=== PATIENT | male | born 1955 | race Caucasian/White ===

== ENCOUNTER 2020-11-10 17:06 | Inpatient (IN) | payer OTHER, SELFPAY ==
[~2020-11-10] VITALS: Ht 177.8 cm; Wt 50.3 kg
[2020-11-10 17:06] VITALS: BP 100/68
--- NOTE | 2020-11-10 17:20 | NUR ---
WAS CALLED TO BEDSIDE TO SXN TRACH - PT HAS T-PIECE FROM FACILITY. SXN SMALL THICK WHITE. T-PIECE PLACED ON 5L NC WITH HUMIDIFIER
[2020-11-10] MEDS ORDERED: ACETAMINOPHEN 160 MG/5 ML UDC GT ONE (17:35)
[2020-11-10] MEDS ORDERED: ACETAMINOPHEN EXTRA STRENGTH 500 MG TAB GT ONE (17:35)
[2020-11-10] MEDS ORDERED: METO25TA GT (17:47)
[2020-11-10] MEDS ORDERED: ALBU3SOL83 IH (17:47)
[2020-11-10] MEDS ORDERED: LOV30I SQ (17:47)
[2020-11-10] MEDS ORDERED: QUET25TA GT (17:47)
[2020-11-10] MEDS ORDERED: ACET650O GT (17:47)
[2020-11-10] MEDS ORDERED: LACT1CAP59 GT (17:47)
[2020-11-10] MEDS ORDERED: FER300L GT (17:47)
[2020-11-10] MEDS ORDERED: MELA3TER GT (17:47)
[2020-11-10] MEDS ORDERED: LORA-476 GT (17:47)
[2020-11-10] MEDS ORDERED: ASCO500T95 GT (17:47)
[2020-11-10] MEDS ORDERED: ROB GT (17:47)
[2020-11-10] MEDS ORDERED: DRON400T5 GT (17:47)
[2020-11-10] MEDS ORDERED: DOCU-299 GT (17:47)
[2020-11-10 18:40] LABS: HEMATOCRIT 33.6 % (36-52); HEMOGLOBIN 11.1 g/dL (12.0-18.0); MEAN CORPUSCULAR HEMOGLOBIN 30 pg (27-31); MEAN CORPUSCULAR HGB CONC 33 g/dL (33-37); PLATELET COUNT (AUTO) 349 K/uL (140-450); RED BLOOD CELL COUNT(AUTO) 3.69 MIL/uL (4.20-6.10); RED CELL DISTRIBUTION WIDTH 13.9 % (11.6-13.7); WHITE BLOOD COUNT (AUTO) 18.2 K/uL (4.8-10.8)
[2020-11-10] MEDS ORDERED: VANCOMYCIN 1,000 MG in DEXTROSE 5% 250 ML IV ONE (18:40)
[2020-11-10] MEDS ORDERED: PIPERACILLIN/TAZOBACTAM 3.375 GM in DEXTROSE 5% 50 ML IV ONE (18:40)
[2020-11-10] MEDS ORDERED: NACL 0.9% 1,000 ML IV ONE ×2 (18:40→19:50)
--- NOTE | 2020-11-10 18:47 | NUR ---
PATIENT IS COMBATATIVE, LABS DRAWN BY TECH AFTER 4 ATTEMPTS BY MYSELF. CATHED FOR UA, PATIENT PULLS OFF ALL CORDS DESPITE THE USE OF SOFT RESTRAINTS. PATIENT IS FEBRILE, CONFUSED, TRACH HUMIDIFIED AIR. BREATH SOUNDS ARE BILATERALLY COARSE. EXAM AND EVAL WITH DR MORENO. STAGE 3 DECUB TO SACRAL, UNABLE TO PHOTOGRAPH AT THIS TIME.
[2020-11-10 18:59] LABS: ALBUMIN 2.9 g/dL (3.4-5.0); ANION GAP 12.3 (8-16); CARBON DIOXIDE 28.7 mmol/L (21-32); CREATININE 1.1 mg/dL (0.6-1.3); TOTAL BILIRUBIN 0.3 mg/dL (0.0-1.0)
--- NOTE | 2020-11-10 19:15 | NUR ---
RECEIVED PT AWAKE AND RESTLESS WITH BLOW BY O2 VIA TRACH. BECOMES COMBATIVE, PUNCHING, THROWS LEGS OVER RAILS. ATTEMPTD TO ASSIST WITH REPOSITIONING.
[2020-11-10 19:17] LABS: LYMPHOCYTES % (MANUAL) 6 % (20-46); MONOCYTES % (MANUAL) 1 % (5-12)
[2020-11-10] MEDS ORDERED: LORazepam 2 MG/ML VIAL IM ONE (19:25)
[2020-11-10] MEDS ORDERED: VANCOMYCIN 1,000 MG VIAL ONE (20:44)
[2020-11-10] MEDS ORDERED: PIPERACILLIN/TAZOBACTAM 3.375 GM VIAL IV ONE (20:45)
--- NOTE | 2020-11-10 21:51 | NUR ---
DAUGHTER IS REQUESTING TRANSFER TO [facility] AND SAYS AN RN WILL NEED TO GO WITH AN RN AND THAT HE REQUIRES 24 HOUR SITTER
[2020-11-10] MEDS ORDERED: ZOLPIDEM 5 MG TAB PO PRN (22:10)
[2020-11-10] MEDS ORDERED: guaiFENesin DM 200/20 MG-10 ML 10 ML UDC PO PRN (22:10)
[2020-11-10] MEDS ORDERED: POTASSIUM CHLORIDE 10 MEQ TABER PO PRN (22:10)
[2020-11-10] MEDS ORDERED: DOCUSATE SODIUM 100 MG GELCAP PO PRN (22:10)
[2020-11-10] MEDS ORDERED: NITROGLYCERIN 0.4 MG TAB SL PRN (22:10)
[2020-11-10] MEDS ORDERED: ONDANSETRON 4 MG/2 ML VIAL IM/IVP PRN (22:10)
[2020-11-10] MEDS ORDERED: ACETAMINOPHEN 325 MG TAB PO PRN (22:10)
[2020-11-10] MEDS ORDERED: ALBUTEROL SULFATE/IPRATROPIU 3 ML SOL IH PRN (22:15)
[2020-11-10] MEDS: ENOXAPARIN 60 MG/0.6 ML SYR SUBQ SCH (22:42)
[2020-11-10] MEDS: NACL 0.9% 1,000 ML IV SCH (22:43)
[2020-11-10 22:52] LABS: APPEARANCE,URINE CLEAR (CLEAR); BILIRUBIN,URINE NEGATIVE (NEGATIVE); BLOOD, URINE NEGATIVE (NEGATIVE); COLOR,URINE YELLOW (YELLOW); LEUKOCYTE ESTERASE ,URINE NEGATIVE (NEGATIVE); NITRITE, URINE NEGATIVE (NEGATIVE); PH,URINE 6.5 (5.0-9.0); UGLUCOSE NEGATIVE (NEGATIVE)
--- NOTE | 2020-11-10 22:57 | NUR ---
R.T. AT BEDSIDE. ABGS DRAWN. EKG WAS DONE
[2020-11-10 23:05] LABS: BARBITURATE, URINE NEGATIVE ng/ml (NEG <=200); BENZODIAZEPINE, URINE POSITIVE ng/mL (NEG <=200); CANNABINOID, URINE NEGATIVE ng/mL (NEG <=50); COCAINE, URINE NEGATIVE ng/mL (NEG <=300); OPIATE, URINE NEGATIVE ng/mL (NEG <=2000); PHENCYCLIDINE SCREEN,URINE NEGATIVE ng/mL (NEG <=25)
[2020-11-10 23:26] LABS: CHOL/HDL RATIO 2.5 (1-4.5); FREE T4 (FREE THYROXINE) 1.06 ng/dL (0.76-1.46); MAGNESIUM 2.1 mg/dL (1.8-2.4); PHOSPHORUS 3.4 mg/dL (2.5-4.9); THYROID STIMULATING HORMONE 1.13 uIU/mL (0.34-3.74)
--- NOTE | 2020-11-10 23:55 | NUR ---
INFLUENZA SWAB OBTAINED
[2020-11-11] MEDS ORDERED: PIPERACILLIN/TAZOBACTAM 3.375 GM VIAL IV ONE ×3 (02:39→18:05)
[2020-11-11] MEDS: PIPERACILLIN/TAZOBACTAM 3.375 GM in DEXTROSE 5% 50 ML IV SCH ×5 (02:41→18:11)
--- NOTE | 2020-11-11 04:25 | NUR ---
RESTLESS, PULLING AT BLOW-BY O2. COUGHING UP THICK SPUTUM. PULLS AT BP CUFF AND PULSE OXIMETER. IS PUNCHING AND THROWING LEGS OVER SIDE OF BED. MEDICATED ORDERED
[2020-11-11] MEDS: LORazepam 1 MG TAB GT PRN ×2 (04:29→21:12)
--- NOTE | 2020-11-11 06:15 | NUR ---
IV FOUND OUT. SEVERAL ATTEMPTS MADE FOR IV ACCESS WITHOUT SUCCESS. PT HAS VERY POOR VENOUS ACCESS AND A LOW THRESHOLD TO PAIN. MOANS LOUDLY WHEN TAPE REMOVED.
[2020-11-11] MEDS: ALBUTEROL SULFATE/IPRATROPIU 3 ML SOL IH SCH ×3 (07:00→19:55)
[2020-11-11 07:22] LABS: ANION GAP 15.4 (8-16); CREATININE 1.2 mg/dL (0.6-1.3); POTASSIUM 3.4 mmol/L (3.5-5.1)
[2020-11-11 07:34] LABS: BASOPHILS # (AUTO) 0.2 K/uL (0.00-0.22); BASOPHILS % (AUTO) 0.9 % (0.0-2.0); EOSINOPHILS % (AUTO) 0.1 % (0.0-4.0); HEMATOCRIT 33.7 % (36-52); HEMOGLOBIN 11.1 g/dL (12.0-18.0); LYMPHOCYTES # (AUTO) 2.5 K/uL (2.0-11.5); LYMPHOCYTES % (AUTO) 14.5 % (20.5-51.1); MEAN CORPUSCULAR HEMOGLOBIN 30 pg (27-31); MEAN CORPUSCULAR HGB CONC 33 g/dL (33-37); MEAN CORPUSCULAR VOLUME 91.4 fL (80-94); MONOCYTES # (AUTO) 0.8 K/uL (0.8-1.0); MONOCYTES % (AUTO) 4.8 % (1.7-9.3); NEUTROPHILS # (AUTO) 13.8 K/uL (1.8-7.7); NEUTROPHILS % (AUTO) 79.7 % (42.2-75.2); PLATELET COUNT (AUTO) 212 K/uL (140-450); RED BLOOD CELL COUNT(AUTO) 3.69 MIL/uL (4.20-6.10); RED CELL DISTRIBUTION WIDTH 13.5 % (11.6-13.7); WHITE BLOOD COUNT (AUTO) 17.3 K/uL (4.8-10.8)
--- NOTE | 2020-11-11 08:00 | NUR ---
PATIENT RESTING IN BED, ON BEDSIDE QLIKVIEW DEVELOPER.
[2020-11-11] MEDS: NACL 0.9% 1,000 ML IV SCH ×2 (08:49→18:30)
[2020-11-11] MEDS: METOPROLOL 25 MG TAB GT SCH ×2 (09:00→21:06)
[2020-11-11] MEDS ORDERED: PANTOPRAZOLE 40 MG TABEC PO SCH (09:00)
[2020-11-11] MEDS ORDERED: QUEtiapine FUMARATE 25 MG TAB GT SCH ×3 (09:00→21:00)
[2020-11-11] MEDS: lisinopriL 5 MG TAB PO SCH (09:00)
[2020-11-11] MEDS ORDERED: METOPROLOL 25 MG TAB PO SCH (09:00)
[2020-11-11] MEDS ORDERED: ECOTRIN 81 MG TABEC PO SCH (09:00)
--- NOTE | 2020-11-11 09:45 | NUR ---
SPOKE WITH PATIENTS DAUGHTER WITH UPDATE ON PATIENT.
[2020-11-11] MEDS ORDERED: CRUSHER, PILL MC ONE (09:49)
[2020-11-11] MEDS: ENOXAPARIN 60 MG/0.6 ML SYR SUBQ SCH ×2 (10:13→21:00)
--- NOTE | 2020-11-11 11:15 | NUR ---
INITALLY PT WAS TO BE ON THE FLOOR - FOUND PT IN ED - T-PIECE IN PLACE - NO RESP DISTRESS NOTED- SXND MOD THICK YELLOW FROM TRACH
--- NOTE | 2020-11-11 12:16 | NUR ---
LYNNETTE COLIN [phone]
--- NOTE | 2020-11-11 12:45 | NUR ---
DC PLANNING: RECEIVED A CALL FROM [employer] [phone] [phone] SPOKE WITH ELEAZAR ARAUJO, UPDATED PT'S CLINICAL AND REQUESTING IF PT IS STABLE FOR TRANSFER TO [facility] THE CONTRACTED FACILITY. DISCUSSED WITH DR BONDS STATED PT NEEDS SURGICAL CONSULT, PROVIDE DR BONDS'S NUMBER FOR [facility] FAXED ALL PAPERWORK AND PROVIDE UNIT NUMBER WELL. DC PLAN AWAITING FOR ELEAZAR FOR FINAL DISCISSION. AUTH TRACKING # [id number] VAN TO FOLLOW
--- NOTE | 2020-11-11 14:00 | NUR ---
PATIENT ON BEDSIDE RECREATION TECHNICIAN, APPEARS TO BE RESTING WITH EYES CLOSED.
--- NOTE | 2020-11-11 14:45 | NUR ---
Spoke with patients daughter with an update Citlaly Curran
--- NOTE | 2020-11-11 15:03 | NUR ---
PATIENT SOILED DIAPER, PATIENT CLEANED AND PLACED IN NEW DIAPER, SHEETS AND GOWN CHANGED, PLACED IN A POSITION OF COMFORT.
--- NOTE | 2020-11-11 15:05 | NUR ---
Patient agitated, attempting to get out of bed. Dr. Martins made aware.
[2020-11-11] MEDS ORDERED: NACL 0.9% 1,000 ML IV ONE (15:40)
[2020-11-11] MEDS ORDERED: LORazepam 2 MG/ML VIAL ONE (16:24)
[2020-11-11] MEDS: ATORVASTATIN 20 MG TAB PO SCH (17:15)
[2020-11-11] MEDS: GLYCOPYRROLATE 1 MG TAB GT SCH (17:19)
--- NOTE | 2020-11-11 17:20 | NUR ---
Patient now resting, on bedside ekg monitor, will continue to monitor.
[2020-11-11] MEDS: LORazepam 2 MG/ML VIAL IVP PRN (17:29)
--- NOTE | 2020-11-11 18:34 | NUR ---
DAUGHTER CHERYL [phone] CALLED REQUESTING UPDATES ABOUT FEEDING/SITTING
--- NOTE | 2020-11-11 19:16 | NUR ---
Pt report given to Faye. Transfer of care at this time.
--- NOTE | 2020-11-11 19:17 | NUR ---
REPORT RECEIVED FROM RAINA. TRANSFER OF CARE AT THIS TIME.
--- NOTE | 2020-11-11 19:20 | NUR ---
pt is awake and in stable condition. vss. side rails x2, bed locked in lowest position.
--- NOTE | 2020-11-11 19:53 | NUR ---
report given to katrin jacobs. ext [phone]
--- NOTE | 2020-11-11 20:03 | NUR ---
PT PULLED TRACH SLIGHTLY OUT. ERMD AND RT AT BEDSIDE. PT IS SATING AT 99% NO SIGNS OF RESPIRATORY DISTRESS. VSS.
--- NOTE | 2020-11-11 20:15 | NUR ---
rad at bedside.
--- NOTE | 2020-11-11 20:23 | NUR ---
ERMD AND 2 RTS AT BEDSIDE REPLACING TRACH.PT IN STABLE CONDITOIN
--- NOTE | 2020-11-11 20:30 | NUR ---
TRACH REINSTERED, PT CONTINUES IN STABLE CONDITION. VSS. RT AT BEDSIDE. RAD AT BEDSIDE.
--- NOTE | 2020-11-11 20:48 | NUR ---
ARRIVED BEDSIDE TO ADMINSTER SCHEDULED TREATMENT, PT HAD PULLED HIS TRACH ALMOST COMPLETELY OUT, NOTIFIED DR. MORENO, WILL HELP OF RT CONGREGATION, ABLE TO RE POSITION TRACH, PT IS NO RESPIRATORY DISTRESS, WILL CONTINUE TO MONITOR, NO TREATMENT GIVEN AT HIS TIME
[2020-11-11] MEDS: FERROUS SULFATE 300 MG/5 ML UDC GT SCH (20:56)
[2020-11-11] MEDS: QUEtiapine FUMARATE 25 MG TAB GT SCH (21:06)
--- NOTE | 2020-11-11 21:26 | NUR ---
Patient will be admitted to care of . Admited to TELE. Will go to [id number]. Belongings list completed. Report to KIMBERLEE ARNDT.
[2020-11-12] MEDS: PIPERACILLIN/TAZOBACTAM 3.375 GM in DEXTROSE 5% 50 ML IV SCH ×4 (00:07→19:09)
[2020-11-12] MEDS: LORazepam 2 MG/ML VIAL IVP PRN ×3 (00:07→20:56)
[2020-11-12] MEDS: ALBUTEROL SULFATE/IPRATROPIU 3 ML SOL IH SCH ×4 (01:00→19:30)
[2020-11-12 02:18] VITALS: BP 95/58
[2020-11-12 05:00] VITALS: BP 95/58
[2020-11-12] MEDS: NACL 0.9% 1,000 ML IV SCH ×2 (05:54→19:09)
[2020-11-12] MEDS: QUEtiapine FUMARATE 25 MG TAB GT SCH ×3 (05:54→20:48)
[2020-11-12] MEDS: LANSOPRAZOLE 30 MG CAPDR GT SCH (06:01)
[2020-11-12 06:08] LABS: T4 (THYROXINE) 7.5 ug/dL (4.5-12.0)
[2020-11-12] MEDS: GLYCOPYRROLATE 1 MG TAB GT SCH ×2 (06:17→19:10)
[2020-11-12 07:36] LABS: BASOPHILS # (AUTO) 0.1 K/uL (0.00-0.22); BASOPHILS % (AUTO) 0.8 % (0.0-2.0); EOSINOPHILS # (AUTO) 0.2 K/uL (0-0.4); EOSINOPHILS % (AUTO) 2.8 % (0.0-4.0); HEMATOCRIT 28.5 % (36-52); HEMOGLOBIN 9.5 g/dL (12.0-18.0); LYMPHOCYTES # (AUTO) 1.3 K/uL (2.0-11.5); LYMPHOCYTES % (AUTO) 16.8 % (20.5-51.1); MEAN CORPUSCULAR HEMOGLOBIN 30 pg (27-31); MEAN CORPUSCULAR HGB CONC 33 g/dL (33-37); MEAN CORPUSCULAR VOLUME 90.8 fL (80-94); MONOCYTES # (AUTO) 0.6 K/uL (0.8-1.0); MONOCYTES % (AUTO) 7.4 % (1.7-9.3); NEUTROPHILS # (AUTO) 5.7 K/uL (1.8-7.7); NEUTROPHILS % (AUTO) 72.2 % (42.2-75.2); PLATELET COUNT (AUTO) 246 K/uL (140-450); RED BLOOD CELL COUNT(AUTO) 3.14 MIL/uL (4.20-6.10); RED CELL DISTRIBUTION WIDTH 13.2 % (11.6-13.7); WHITE BLOOD COUNT (AUTO) 7.8 K/uL (4.8-10.8)
[2020-11-12 07:38] LABS: ANION GAP 12.1 (8-16); CARBON DIOXIDE 25.2 mmol/L (21-32); POTASSIUM 3.3 mmol/L (3.5-5.1)
[2020-11-12 08:00] VITALS: BP 115/68
--- NOTE | 2020-11-12 08:45 | NUR ---
PATIENT HAS BEEN SCREENED AND CATEGORIZED HIGH NUTRITION RISK. PATIENT WILL BE SEEN WITHIN 1-2 DAYS OF ADMISSION. 11/12/[address]
[2020-11-12] MEDS ORDERED: ASPIRIN 81 MG TAB.CHEW PO SCH (09:00)
--- NOTE | 2020-11-12 10:28 | NUR ---
WOUND CARE EVALUATION NOTE: REASON FOR EVALUATION: LOW LEANN SCALE AND MULTIPLE WOUNDS SKIN ASSESSMENT DONE WITH THIS 65 Y/O PT ADMITTED FROM SNF TO [facility] WITH INITIAL DX AFIB, ANEMIA, RESPIRATORY FAILURE S/P TRACH, ENCEPHALOPATHY, PANCREATITIS, CHOLECYSTITIS, PRESSURE INJURY WOUNDS, G-TUBE. ALL ABOVE INFORMATION OBTAINED FROM ADMISSION H&P. PT IS AWAKE. SKIN IS WARM AND DRY, BLE HAIR GROWTH, NO EDEMA. DORSAL PEDAL PULSES PRESENT AND NORMAL. CAPILLARY REFILLED < 2 SEC. X 10 TOES. INCONTINENT OF BOWEL AND BLADDER. BILATERAL SOFT WRIST RESTRAINS WN PLACE, SKIN INTACT UNDERNEATH THE DEVICES. PLAN OF CARE DISCUSSED WITH PRIMARY RN. INTEGUMENTARY: -ORAL MEMBRANE PINK INTACT, LIPS DRY, NO OPEN WOUNDS -TRACH SITE EZRA STOMA SKIN DRY AND CLEAN. SKIN INTACT. -GT SITE ERZA STOMA WITH SKIN INTACT. -PRESSURE INJURY STAGE 2, RIGHT SCAPULAR 2X2CM SUPERFICIAL DEPTH, WOUND BED PINK AND MOIST, NO ODOR, EZRA-WOUND SKIN DRY FLAKY SKIN -PRESSURE INJURY STAGE 4, SACRAL COCCYX 5X4X0.8CM WOUND BED IS RED 20% GRANULATING TISSUE,80 % THIN SOFT YELLOW SLOUGH TISSUE WITH UNDERMINING AROUND THE OCLOCK, DEEPEST TO 3 OCLOCK DIRECTION 2CM DEEP SMALL AMOUNT SEROUS DRAINAGE NO ODOR EZRA WOUND SKIN MOIST INTACT. -RIGHT HIP STAGE 1 PRESSURE INJURY 3X3CM RECOMMENDATIONS: -APPLY HYDRAGUARD TO R/L GROINS EXTENDED TO SCROTAL AND EZRA-ANAL SKIN BID AND PRN IF SOILING - CLEANSE RIGHT SCAPULAR AND SACRALCOCCYX WOUNDS WITH WOUND CLEANSING SOLUTION AND APPLY THERAHONEY GEL COVER WITH DRY DRESSING QD AND PRN IF SOILING -APPLY FORM DRESSING TO RIGHT HIP Q3 DAYS AND PRN IF SOILING AND OFFLOADING -APPLY HEEL PROTECTORS TO BOTH HEELS AT ALL TIMES -OFFLOAD BILATERAL HEELS BY PLACING PILLOWS UNDER CALVES UNLESS OTHERWISE CONTRAINDICATED -PRESSURE REDISTRIBUTION SURFACE THERAPY -TURN AND REPOSITION Q2H, OFFLOAD SACRALCOCCYX AND BUTTOCKS BY TURNING RIGHT AND LEFT -CONTINUE TO FOLLOW RD RECOMMENDATIONS ALL ABOVE RECOMMENDATIONS DISCUSSED WITH PRIMARY RN. PLEASE CONTACT WOUND CARE NURSE FOR ANY QUESTION AND CHANGE OF WOUND CONDITION.
[2020-11-12] MEDS: FERROUS SULFATE 300 MG/5 ML UDC GT SCH ×2 (11:51→20:46)
[2020-11-12] MEDS: ASPIRIN 81 MG TAB.CHEW GT SCH (11:52)
[2020-11-12] MEDS: LORazepam 1 MG TAB GT PRN (11:52)
[2020-11-12] MEDS: METOPROLOL 25 MG TAB GT SCH ×2 (11:53→20:47)
[2020-11-12] MEDS: lisinopriL 5 MG TAB PO SCH (11:53)
[2020-11-12] MEDS: ENOXAPARIN 60 MG/0.6 ML SYR SUBQ SCH ×2 (11:54→21:00)
[2020-11-12 12:00] VITALS: BP 101/66
--- NOTE | 2020-11-12 12:30 | NUR ---
DC PLANNING: CM SPOKE WITH JOSE ([phone]) AT [facility] REGARDING PATIENTS TRANSFER TO [facility]. PCR FAXED TO JOSE AND THE NUMBER FOR MST WAS ALSO GIVEN TO HER IN CASE A ROOM BECOMES AVAILABLE AT [facility] AFTER HOURS OR ON THE WEEKEND. ABOVE ENDORSED TO THE [facility] CHARGE NURSE SERVANDO. CM WILL FOLLOW FOR NEEDS. Addendum: 11/15/20 at 1104 by Lakshmi Cameron CM DC PLANNING: RECEIV[facility] A [facility], STATES THAT PATIENTS STAY IS AUTHORIZED THROUGH DC DATE OF 11/14 BUT NEEDS THE DC SUMMARY TO CLOSE OUT CASE AND ISSUE FINAL AUTH. CM WILL FAX ONCE DC SUMMARY IS COMPLETED. CM WILL FOLLOW NEEDED.
[2020-11-12] MEDS: HYDRAGUARD CREAM TP SCH (14:04)
[2020-11-12] MEDS: THERAHONEY GEL 42.5 GM TP SCH (14:05)
--- NOTE | 2020-11-12 14:05 | NUR ---
RECEIVED TORB FOR VITAMIN C 500 MG BID AND MULTIVITAMIN ONCE DAILY FROM DR. BONDS.
--- NOTE | 2020-11-12 14:43 | NUR ---
11/12/20 RD INITIAL ASSESSMENT COMPLETED PLEASE REFER TO NUTRITION ASSESSMENT UNDER CARE ACTIVITY FOR ESTIMATED NUTRITIONAL NEEDS. 1. OSMOLITE 1.5 @ 65 ML/HR WITH FREE WATER FLUSH OF 135 ML Q4H -THIS IS PROVIDING 2340 KCAL/DAY, 97 GM OF PROTEIN/DAY. 2. RECOMMEND VITAMIN C 500 MG BID AND MULTIVITAMIN ONCE DAILY 3. RD TO FOLLOW-UP 2-3 DAYS, HIGH RISK SAMI NEUMANN RD
[2020-11-12] MEDS: ATORVASTATIN 20 MG TAB PO SCH (19:10)
--- NOTE | 2020-11-12 19:10 | NUR ---
RECEIVED REPORT FROM KIRT MOHAN FOR CONTINUITY OF CARE. PT SITTING UP AAO. NO APPARENT S/S OF ACUTE DISTRESS. BREATHING EVEN AND UNLABORED ON 2L TRACH WITH O2 SAT OF 96%. L HAND 22G INTACT/PATENT WITH NS@100ML/HR. GT INTACT/PATENT WITH OSMOLITE 1.5@65ML/HR. POC AND WHITE COMMUNICATION BOARD UPDATED. BED IN LOW/LOCKED POSITION. CALL LIGHT WITHIN REACH. PT ENCOURAGED TO CALL FOR ANY NEEDS/ASSISTANCE. WILL CONTINUE TO MONITOR.
[2020-11-12 20:00] VITALS: BP 123/71
[2020-11-12] MEDS: ASCORBIC ACID 500 MG/5 ML ORASYR GT SCH (20:46)
[2020-11-12] MEDS ORDERED: CRUSHER, PILL MC ONE (21:01)
[2020-11-13] VITALS: BP 118/67
[2020-11-13] MEDS: NACL 0.9% 1,000 ML IV SCH ×3 (00:10→20:10)
[2020-11-13] MEDS: HYDRAGUARD CREAM TP SCH ×3 (01:05→23:37)
[2020-11-13] MEDS: ALBUTEROL SULFATE/IPRATROPIU 3 ML SOL IH SCH ×4 (01:35→19:00)
[2020-11-13 04:00] VITALS: BP 123/55
[2020-11-13] MEDS: QUEtiapine FUMARATE 25 MG TAB GT SCH ×3 (04:38→20:13)
[2020-11-13] MEDS: LORazepam 2 MG/ML VIAL IVP PRN ×3 (04:39→20:12)
[2020-11-13] MEDS: PIPERACILLIN/TAZOBACTAM 3.375 GM in DEXTROSE 5% 50 ML IV SCH ×6 (05:48→23:31)
[2020-11-13] MEDS: LANSOPRAZOLE 30 MG CAPDR GT SCH (06:38)
--- NOTE | 2020-11-13 06:58 | NUR ---
PT RESTING. NO APPARENT S/S OF ACUTE DISTRESS. BREATHING EVEN AND UNLABORED. BED IN LOW/LOCKED POSITION. CALL LIGHT WITHIN REACH. WILL ENDORSED CARE TO AM RN. ALL NEEDS MET AT THIS TIME.
[2020-11-13 07:29] LABS: ANION GAP 10.8 (8-16); CARBON DIOXIDE 26.1 mmol/L (21-32); CREATININE 0.8 mg/dL (0.6-1.3)
[2020-11-13 07:34] LABS: BASOPHILS % (AUTO) 0.7 % (0.0-2.0); EOSINOPHILS # (AUTO) 0.2 K/uL (0-0.4); EOSINOPHILS % (AUTO) 3.4 % (0.0-4.0); HEMATOCRIT 25.7 % (36-52); HEMOGLOBIN 8.9 g/dL (12.0-18.0); LYMPHOCYTES # (AUTO) 1.2 K/uL (2.0-11.5); MEAN CORPUSCULAR HEMOGLOBIN 31 pg (27-31); MEAN CORPUSCULAR HGB CONC 35 g/dL (33-37); MEAN CORPUSCULAR VOLUME 88.4 fL (80-94); MONOCYTES # (AUTO) 0.4 K/uL (0.8-1.0); MONOCYTES % (AUTO) 6.3 % (1.7-9.3); NEUTROPHILS % (AUTO) 71.6 % (42.2-75.2); PLATELET COUNT (AUTO) 223 K/uL (140-450); RED BLOOD CELL COUNT(AUTO) 2.91 MIL/uL (4.20-6.10); RED CELL DISTRIBUTION WIDTH 13.1 % (11.6-13.7); WHITE BLOOD COUNT (AUTO) 6.9 K/uL (4.8-10.8)
[2020-11-13 07:45] LABS: POTASSIUM 2.9 mmol/L (3.5-5.1)
[2020-11-13] MEDS: GLYCOPYRROLATE 1 MG TAB GT SCH ×2 (07:52→15:44)
[2020-11-13] MEDS: LORazepam 1 MG TAB GT PRN ×3 (07:52→23:30)
[2020-11-13] MEDS: HYDROcodone/APAP 7.5/325 MG 1 TAB PO PRN ×2 (07:53→20:18)
--- NOTE | 2020-11-13 07:53 | NUR ---
Patient's potassium at 2.9. Replaced with prn potassium of 40 MEQ as ordered.
[2020-11-13 08:00] VITALS: BP 112/69
[2020-11-13] MEDS: ASPIRIN 81 MG TAB.CHEW GT SCH (09:54)
[2020-11-13] MEDS: FERROUS SULFATE 300 MG/5 ML UDC GT SCH ×2 (09:54→20:13)
[2020-11-13] MEDS: MULTIVITAMIN/MINERALS 15 ML UDBTL GT SCH (09:55)
[2020-11-13] MEDS: METOPROLOL 25 MG TAB GT SCH ×2 (09:55→21:00)
[2020-11-13] MEDS: lisinopriL 5 MG TAB PO SCH (09:56)
[2020-11-13] MEDS: ASCORBIC ACID 500 MG/5 ML ORASYR GT SCH ×2 (09:56→20:13)
[2020-11-13] MEDS: ENOXAPARIN 60 MG/0.6 ML SYR SUBQ SCH ×2 (09:58→23:17)
[2020-11-13] MEDS: THERAHONEY GEL 42.5 GM TP SCH (15:46)
[2020-11-13 18:00] VITALS: BP 112/69
[2020-11-13] MEDS: ATORVASTATIN 20 MG TAB PO SCH (18:36)
[2020-11-13 21:00] VITALS: BP 97/62
[2020-11-14 00:29] VITALS: BP 124/53
[2020-11-14] MEDS: ALBUTEROL SULFATE/IPRATROPIU 3 ML SOL IH SCH ×3 (01:25→13:55)
[2020-11-14] MEDS: LORazepam 2 MG/ML VIAL IVP PRN ×2 (03:35→09:35)
[2020-11-14 04:00] VITALS: BP 105/63
[2020-11-14 04:04] VITALS: BP 105/63
[2020-11-14 05:14] LABS: BASOPHILS % (AUTO) 0.4 % (0.0-2.0); EOSINOPHILS # (AUTO) 0.2 K/uL (0-0.4); EOSINOPHILS % (AUTO) 5.8 % (0.0-4.0); HEMATOCRIT 27.2 % (36-52); HEMOGLOBIN 9.2 g/dL (12.0-18.0); LYMPHOCYTES # (AUTO) 1.2 K/uL (2.0-11.5); LYMPHOCYTES % (AUTO) 31.8 % (20.5-51.1); MEAN CORPUSCULAR HEMOGLOBIN 31 pg (27-31); MEAN CORPUSCULAR HGB CONC 34 g/dL (33-37); MEAN CORPUSCULAR VOLUME 90.9 fL (80-94); MONOCYTES # (AUTO) 0.3 K/uL (0.8-1.0); MONOCYTES % (AUTO) 7.7 % (1.7-9.3); NEUTROPHILS # (AUTO) 2.1 K/uL (1.8-7.7); NEUTROPHILS % (AUTO) 54.3 % (42.2-75.2); PLATELET COUNT (AUTO) 226 K/uL (140-450); RED BLOOD CELL COUNT(AUTO) 2.99 MIL/uL (4.20-6.10); RED CELL DISTRIBUTION WIDTH 13.3 % (11.6-13.7); WHITE BLOOD COUNT (AUTO) 3.8 K/uL (4.8-10.8)
[2020-11-14] MEDS: LORazepam 1 MG TAB GT PRN ×2 (05:53→11:50)
[2020-11-14] MEDS: QUEtiapine FUMARATE 25 MG TAB GT SCH ×2 (05:54→12:35)
[2020-11-14] MEDS: LANSOPRAZOLE 30 MG CAPDR GT SCH (05:54)
[2020-11-14] MEDS: PIPERACILLIN/TAZOBACTAM 3.375 GM in DEXTROSE 5% 50 ML IV SCH ×2 (06:00→12:34)
[2020-11-14] MEDS: NACL 0.9% 1,000 ML IV SCH (06:10)
[2020-11-14] MEDS: GLYCOPYRROLATE 1 MG TAB GT SCH (06:10)
[2020-11-14 06:12] LABS: CARBON DIOXIDE 28.9 mmol/L (21-32); CREATININE 0.8 mg/dL (0.6-1.3); POTASSIUM 3.9 mmol/L (3.5-5.1)
--- NOTE | 2020-11-14 07:30 | NUR ---
RECEIVED REPORT FROM NIGHT RN FOR CONTINUITY OF CARE. AOX0, UNABLE TO MAKE NEEDS KNOWN, FLACC 0, NO APPARENT S/S OF ACUTE DISTRESS. BREATHING EVEN AND UNLABORED ON 2L TRACH. L HAND 22G INTACT/PATENT WITH NS@100ML/HR. GT INTACT/PATENT WITH OSMOLITE 1.5@65ML/HR FWF 135 Q4. SOFT WRIST RESTRAINTS IN PLACE. PRECAUTION FOR LEFT SIDE CRANIO. BED IN LOW/LOCKED POSITION. CALL LIGHT WITHIN REACH. PT ENCOURAGED TO CALL FOR ANY NEEDS/ASSISTANCE. WILL CONTINUE TO MONITOR.
[2020-11-14 08:00] VITALS: BP 110/70
--- NOTE | 2020-11-14 09:20 | NUR ---
DUE MEDS GIVEN, TOLERATED GT MEDS WELL
[2020-11-14] MEDS: ENOXAPARIN 60 MG/0.6 ML SYR SUBQ SCH (09:24)
--- NOTE | 2020-11-14 09:40 | NUR ---
DR BONDS TALKED TO PT'S SON VIA PHONE, DISCUSSED [place] [facility] [place]
[2020-11-14] MEDS: ASCORBIC ACID 500 MG/5 ML ORASYR GT SCH (09:42)
[2020-11-14] MEDS: lisinopriL 5 MG TAB PO SCH (09:42)
[2020-11-14] MEDS: FERROUS SULFATE 300 MG/5 ML UDC GT SCH (09:42)
[2020-11-14] MEDS: METOPROLOL 25 MG TAB GT SCH (09:42)
[2020-11-14] MEDS: ASPIRIN 81 MG TAB.CHEW GT SCH (09:42)
[2020-11-14] MEDS: MULTIVITAMIN/MINERALS 15 ML UDBTL GT SCH (09:42)
[2020-11-14] MEDS ORDERED: IV Zosyn IV (10:48)
--- NOTE | 2020-11-14 11:15 | NUR ---
WOUND CARE DONE, TURNED AND REPOSITIONED
[2020-11-14 12:00] VITALS: BP 130/73
--- NOTE | 2020-11-14 12:05 | NUR ---
CALL PLACE TO [facility] PT TO RETURN TO SNF WITH DC ORDER, , UNABLE TO CONNECT, CALLED MULTIPLE TIMES.
--- NOTE | 2020-11-14 12:09 | NUR ---
SPOKE WITH ARLYN FROM [facility] [place] ADMISSION REGARDING THE DISCHARGE BACK TO [facility] [place]. DIMPLE STATED SHE WILL CALL ME BACK TO GIVE ME THE ROOM NUMBER AMND THE TRANSPORTATION.
[2020-11-14] MEDS: HYDRAGUARD CREAM TP SCH (12:35)
[2020-11-14] MEDS: THERAHONEY GEL 42.5 GM TP SCH (12:35)
--- NOTE | 2020-11-14 14:13 | NUR ---
DIMPLE CALLED BACK WITH ROOM #. PT IS GOING TO ROOM 131 IN [facility]. PER DIMPLE, THEY DON'T ARRANGE TRANSPORTATION. SET UP TRANSPORTATION THRU [facility], PT IS WITH TRACH ON T-PIECE WITH 2LPM OXYGEN. CLINICALS FAXED TO [facility], CONFIRMATION ATTACHED TO PT'S CHART. DOOR LINER IS AT 3:30 PM TODAY. LUCAS ASSIGNED EMMA BRAGG.
--- NOTE | 2020-11-14 14:17 | NUR ---
CALLED [facility] AND GAVE REPORT TO KIMBERLEE MERRITT. ANSWERED ALL OF HER QUESTIONS REGARDING TRANSFER. NOTIFIED HER OF TRANSFER TIME SCHEDULED FOR 1530. RN VERBALIZED UNDERSTANDING. DISCHARGE INSTRUCTIONS PROVIDED TO PATIENT/DAUGHTER AT BEDSIDE. ANSWERED ALL OF DAUGHTER'S QUESTIONS REGARDING TRANSFER. NOTIFIED DAUGHTER TO PICKUP TIME AT 1530. DAUGHTER VERBALIZED COMPLETE UNDERSTANDING. AWAITING FOR [facility] TRANSPORT TO ARRIVE AND WILL CONTINUE TO MONITOR.
--- NOTE | 2020-11-14 15:25 | NUR ---
[facility] TRANSPORTER ON UNIT TO TAKE PATIENT TO [facility]. ID BANDS REMOVED. IV SITE TO STAY IN PLACE PER MD. PATIENT TRANSFERRED AT THIS TIME TO [facility] VIA [facility].
[2020-11-15] MEDS ORDERED: FOAM DRESSING TP SCH (09:00)
== END 2020-11-14 15:21 | DRG 871 ==
LOC: MED 17:06 → MMU 22:05 → MTU 11-11 03:51
PROVIDERS: ADMIT Family Medicine; ATTEND Family Medicine
PROC: 0BW1XFZ Revision of Tracheostomy Device in Trachea, External Approach (ICD-10-PCS; principal; 2020-11-11)
DX: A41.9 Sepsis, unspecified organism (principal); L89.153 Pressure ulcer of sacral region, stage 3; E43 Unspecified severe protein-calorie malnutrition; I21.4 Non-ST elevation (NSTEMI) myocardial infarction; N17.0 Acute kidney failure with tubular necrosis; J96.90 Respiratory failure, unspecified, unspecified whether with hypoxia or hypercapnia; G81.91 Hemiplegia, unspecified affecting right dominant side; L03.317 Cellulitis of buttock; Z68.1 Body mass index [BMI] 19.9 or less, adult; J95.09 Other tracheostomy complication; I48.0 Paroxysmal atrial fibrillation; Y83.8 Other surgical procedures as the cause of abnormal reaction of the patient, or of later complication, without mention of misadventure at the time of the procedure; Y92.238 Other place in hospital as the place of occurrence of the external cause; Z20.822 Contact with and (suspected) exposure to COVID-19; E87.6 Hypokalemia; I48.91 Unspecified atrial fibrillation; D64.9 Anemia, unspecified; Z90.49 Acquired absence of other specified parts of digestive tract; Z79.899 Other long term (current) drug therapy
CPT/HCPCS: 36415; 36600; 70360; 71045; 80048; 80053; 80305; 81003; 82150; 82803; 83036; 83605; 83690; 83735; 83880; 84100; 84436; 84439; 84443; 84479; 84484; 85025; 85610; 85730; 87040; 87070; 87081; 87086; 87186; 87205; 87804; 93005; 94640; 96365; 96368; 96372; 97163-GP; 97530; 99291; J1650; J2060; J2543; J3370; J7060; Q0092; U0003